=== PATIENT | male | born 1945 | race Caucasian/White ===

== ENCOUNTER 2022-03-16 10:30 | Emergency (ER) | payer MEDICARE, MEDICAID ==
[2022-03-16 11:15] LABS: BASO % 0.5 % (0.0-1.0); EOS # 0.1 10*3/uL (0.0-0.4); EOS % 1.1 % (1.0-4.0); HEMATOCRIT 39.5 % (42.0-52.0); LYMPH # 2.1 10*3/uL (1.3-4.4); LYMPH % 26.1 % (27.0-41.0); MEAN CORPUSCULAR HGB CONC 32.7 g/dl (33.0-37.0); MEAN PLATELET VOLUME 8.5 fl (9.6-12.3); MONO # 0.8 10*3/uL (0.1-1.0); MONO % 9.4 % (3.0-9.0); NEUT % 62.5 % (47.0-73.0); PLATELET COUNT AUTOMATED 344 10*3/uL (130-400); RED BLOOD COUNT 4.16 10*6/uL (4.50-5.90); RED CELL DISTRI WIDTH 13.3 % (0-14.5); WHITE BLOOD COUNT 7.9 10*3/uL (4.8-10.8)
[2022-03-16 11:26] LABS: ACT PARTIAL THROMBO TIME 29.3 SECONDS (20.0-32.1)
[2022-03-16 11:31] LABS: ALKALINE PHOSPHATASE 62 U/L (45-117); BUN 14 mg/dl (7-24); CHLORIDE 110 mmol/L (98-107); CREATININE 0.78 mg/dL (0.70-1.30); LIPASE 43 U/L (73-393); POTASSIUM 4.3 mmol/L (3.5-5.1); SGOT/AST 9 IU/L (3-35); SGPT/ALT 21 U/L (12-78); SODIUM 144 mmol/L (136-145); TOTAL PROTEIN 6.3 gm/dL (6.4-8.2)
[2022-03-16 11:44] LABS: VALPROIC ACID (DEPAKENE) 44.6 ug/ml (50-100)
[2022-03-16] MEDS ORDERED: ASPIRIN ADULT L81 M1 PO (16:40)
[2022-03-16] MEDS ORDERED: GENTLE LAXATIVE10 MG R (16:42)
[2022-03-16] MEDS ORDERED: FLORASTOR250 MG PO (16:44)
[2022-03-16] MEDS ORDERED: INSULIN LI100 UNIT/1 SQ (16:50)
[2022-03-16] MEDS ORDERED: JARDIANCE25 MG PO (16:51)
[2022-03-16] MEDS ORDERED: LANTUS SOL100 UNIT/1 SQ (16:52)
[2022-03-16] MEDS ORDERED: LISINOPRIL20 MG PO (16:53)
[2022-03-16] MEDS ORDERED: LOMOTIL 2.5-0.1 EACH PO (16:54)
[2022-03-16] MEDS ORDERED: LOVASTATIN20 MG PO (16:56)
[2022-03-16] MEDS ORDERED: TAMSULOSIN HCL0.4 MG PO (17:46)
[2022-03-16] MEDS ORDERED: TRULICITY1.5 MG/0.5 SC (17:52)
[2022-03-16] MEDS ORDERED: [UNRECOGNIZED DRUG - OTHER] PO (17:53)
== END 2022-03-16 15:58 ==
LOC: ED 10:30
PROVIDERS: Emergency Medicine
DX: F23 Brief psychotic disorder (principal); Z88.2 Allergy status to sulfonamides; Z88.8 Allergy status to other drugs, medicaments and biological substances

== ENCOUNTER 2022-03-16 13:15 | Inpatient (IN) | payer MEDICARE, MEDICAID ==
[~2022-03-16] VITALS: Ht 177.8 cm; Wt 73.5 kg
[2022-03-16] MEDS ORDERED: ASPIRIN ADULT L81 M1 PO (16:40)
[2022-03-16] MEDS ORDERED: GENTLE LAXATIVE10 MG R (16:42)
[2022-03-16] MEDS ORDERED: FLORASTOR250 MG PO (16:44)
[2022-03-16] MEDS ORDERED: INSULIN LI100 UNIT/1 SQ (16:50)
[2022-03-16] MEDS ORDERED: JARDIANCE25 MG PO (16:51)
[2022-03-16] MEDS ORDERED: LANTUS SOL100 UNIT/1 SQ (16:52)
[2022-03-16] MEDS ORDERED: LISINOPRIL20 MG PO (16:53)
[2022-03-16] MEDS ORDERED: LOMOTIL 2.5-0.1 EACH PO (16:54)
[2022-03-16] MEDS ORDERED: LOVASTATIN20 MG PO (16:56)
[2022-03-16] MEDS ORDERED: TAMSULOSIN HCL0.4 MG PO (17:46)
[2022-03-16] MEDS ORDERED: TRULICITY1.5 MG/0.5 SC (17:52)
[2022-03-16] MEDS ORDERED: [UNRECOGNIZED DRUG - OTHER] PO (17:53)
[2022-03-16 20:00] VITALS: BP 120/74
[2022-03-16 20:49] VITALS: BP 120/74
[2022-03-17 06:10] LABS: BASO # 0.1 10*3/uL (0.0-0.1); BASO % 0.5 % (0.0-1.0); EOS # 0.2 10*3/uL (0.0-0.4); EOS % 2.1 % (1.0-4.0); HEMATOCRIT 39.4 % (42.0-52.0); LYMPH % 31.9 % (27.0-41.0); MEAN CELL VOLUME 95.2 fl (80.0-94.0); MEAN CORPUSCULAR HGB 31.4 pg (27.0-31.0); MEAN PLATELET VOLUME 8.7 fl (9.6-12.3); NEUT # 5.1 10*3/uL (2.3-7.9); NEUT % 54.3 % (47.0-73.0); PLATELET COUNT AUTOMATED 338 10*3/uL (130-400); RED BLOOD COUNT 4.14 10*6/uL (4.50-5.90); RED CELL DISTRI WIDTH 13.6 % (0-14.5); WHITE BLOOD COUNT 9.4 10*3/uL (4.8-10.8)
[2022-03-17 06:18] LABS: BUN 13 mg/dl (7-24); CHLORIDE 107 mmol/L (98-107); CHOLESTEROL 108 mg/dL (<200); CREATININE 0.74 mg/dL (0.70-1.30); POTASSIUM 3.6 mmol/L (3.5-5.1); SGOT/AST 20 IU/L (3-35); SGPT/ALT 20 U/L (12-78); SODIUM 141 mmol/L (136-145)
[2022-03-17 06:28] LABS: ALKALINE PHOSPHATASE 60 U/L (45-117); LDL CHOLESTEROL 44 mg/dL (9-159); TOTAL PROTEIN 6.4 gm/dL (6.4-8.2); TRIGLYCERIDES 80 mg/dl (<150); VALPROIC ACID (DEPAKENE) 37.8 ug/ml (50-100)
[2022-03-17 07:43] LABS: VITAMIN D, 25-HYDROXY 41.6 ng/mL (30-100)
[2022-03-17 07:44] VITALS: BP 113/63
[2022-03-17 20:00] VITALS: BP 132/78
[2022-03-18 07:44] VITALS: BP 129/80
[2022-03-18 20:00] VITALS: BP 104/87
[2022-03-19 07:02] VITALS: BP 125/90
[2022-03-19 20:00] VITALS: BP 141/89
[2022-03-20 07:19] VITALS: BP 116/58
[2022-03-20 20:00] VITALS: BP 124/59
[2022-03-21 08:39] VITALS: BP 108/56
[2022-03-21 10:30] VITALS: BP 102/50
[2022-03-21 20:00] VITALS: BP 142/73
[2022-03-22 08:00] VITALS: BP 110/62
[2022-03-22 10:57] LABS: BASO % 0.4 % (0.0-1.0); EOS # 0.1 10*3/uL (0.0-0.4); EOS % 1.4 % (1.0-4.0); HEMATOCRIT 39.5 % (42.0-52.0); LYMPH # 2.8 10*3/uL (1.3-4.4); LYMPH % 30.6 % (27.0-41.0); MEAN CORPUSCULAR HGB CONC 32.7 g/dl (33.0-37.0); MEAN PLATELET VOLUME 8.8 fl (9.6-12.3); MONO # 0.9 10*3/uL (0.1-1.0); MONO % 9.9 % (3.0-9.0); NEUT # 5.2 10*3/uL (2.3-7.9); NEUT % 57.4 % (47.0-73.0); PLATELET COUNT AUTOMATED 332 10*3/uL (130-400); RED BLOOD COUNT 4.16 10*6/uL (4.50-5.90); RED CELL DISTRI WIDTH 13.8 % (0-14.5); WHITE BLOOD COUNT 9.1 10*3/uL (4.8-10.8)
[2022-03-22 11:15] LABS: ALKALINE PHOSPHATASE 62 U/L (45-117); BUN 18 mg/dl (7-24); CHLORIDE 107 mmol/L (98-107); CREATININE 0.68 mg/dL (0.70-1.30); POTASSIUM 5.2 mmol/L (3.5-5.1); SGOT/AST 18 IU/L (3-35); SGPT/ALT 30 U/L (12-78); SODIUM 141 mmol/L (136-145); TOTAL PROTEIN 5.8 gm/dL (6.4-8.2)
[2022-03-22 20:00] VITALS: BP 104/62
[2022-03-23 06:54] LABS: BUN 16 mg/dl (7-24); CHLORIDE 109 mmol/L (98-107); POTASSIUM 4.3 mmol/L (3.5-5.1); SODIUM 141 mmol/L (136-145); TOTAL PROTEIN 5.8 gm/dL (6.4-8.2)
[2022-03-23 06:57] LABS: ALKALINE PHOSPHATASE 65 U/L (45-117); CREATININE 0.72 mg/dL (0.70-1.30); SGOT/AST 17 IU/L (3-35); SGPT/ALT 32 U/L (12-78)
[2022-03-23 07:16] VITALS: BP 115/80
[2022-03-23 20:00] VITALS: BP 103/76
[2022-03-24 07:00] VITALS: BP 112/64
[2022-03-24 18:57] VITALS: BP 150/91
[2022-03-25 06:43] VITALS: BP 148/88
[2022-03-25 20:00] VITALS: BP 152/87
[2022-03-26 07:41] VITALS: BP 102/58
[2022-03-26 20:00] VITALS: BP 109/61
[2022-03-27 07:05] VITALS: BP 126/61
[2022-03-27 20:00] VITALS: BP 121/62
[2022-03-28 08:00] VITALS: BP 112/69
[2022-03-28 20:00] VITALS: BP 122/65
[2022-03-29 07:54] VITALS: BP 101/60
[2022-03-29 20:00] VITALS: BP 125/67
[2022-03-30 08:17] VITALS: BP 127/69
[2022-03-30 20:00] VITALS: BP 124/68
[2022-03-31 06:59] VITALS: BP 126/70
[2022-03-31 10:15] LABS: BASO # 0.1 10*3/uL (0.0-0.1); BASO % 0.6 % (0.0-1.0); EOS # 0.2 10*3/uL (0.0-0.4); EOS % 2.2 % (1.0-4.0); HEMATOCRIT 38.1 % (42.0-52.0); LYMPH # 2.9 10*3/uL (1.3-4.4); MEAN CELL VOLUME 95.3 fl (80.0-94.0); MEAN CORPUSCULAR HGB CONC 32.5 g/dl (33.0-37.0); MEAN PLATELET VOLUME 8.5 fl (9.6-12.3); MONO # 1.1 10*3/uL (0.1-1.0); MONO % 10.2 % (3.0-9.0); NEUT # 6.5 10*3/uL (2.3-7.9); NEUT % 59.6 % (47.0-73.0); PLATELET COUNT AUTOMATED 291 10*3/uL (130-400); RED CELL DISTRI WIDTH 14.4 % (0-14.5); WHITE BLOOD COUNT 10.8 10*3/uL (4.8-10.8)
[2022-03-31 10:41] LABS: ALKALINE PHOSPHATASE 74 U/L (45-117); BUN 17 mg/dl (7-24); CHLORIDE 107 mmol/L (98-107); CREATININE 0.86 mg/dL (0.70-1.30); POTASSIUM 4.2 mmol/L (3.5-5.1); SGOT/AST 22 IU/L (3-35); SGPT/ALT 49 U/L (12-78); SODIUM 140 mmol/L (136-145); TOTAL PROTEIN 6.4 gm/dL (6.4-8.2)
[2022-03-31 20:00] VITALS: BP 135/67
[2022-04-01 06:58] VITALS: BP 129/60
[2022-04-01 19:25] VITALS: BP 147/72
[2022-04-02 07:53] VITALS: BP 129/66
[2022-04-02 07:54] VITALS: BP 139/77
[2022-04-02 20:00] VITALS: BP 106/77
[2022-04-03 07:29] VITALS: BP 110/50
[2022-04-03 20:00] VITALS: BP 118/57
[2022-04-04 07:31] VITALS: BP 132/70
[2022-04-04 07:32] VITALS: BP 104/62
[2022-04-05 07:34] VITALS: BP 118/68
[2022-04-05] MEDS ORDERED: LANTUS SOL100 UNIT/1 SQ (10:36)
[2022-04-05] MEDS ORDERED: Humalog SQ (10:36)
[2022-04-05 20:00] VITALS: BP 139/62
[2022-04-06 07:11] VITALS: BP 125/60
[2022-04-06] MEDS ORDERED: QUETIAPINE FUMA25 MG PO (09:23)
[2022-04-06] MEDS ORDERED: MIRTAZAPINE15 M2 PO (09:23)
[2022-04-06] MEDS ORDERED: RIVASTIGMINE1 EAC2 T (09:23)
[2022-04-06] MEDS ORDERED: ROZEREM8 MG PO (09:24)
[2022-04-06] MEDS ORDERED: MEMANTINE HCL10 MG PO (09:24)
[2022-04-06] MEDS ORDERED: LORAZEPAM1 MG PO (09:24)
== END 2022-04-06 11:27 | DRG 883 ==
LOC: 3N 13:15
PROVIDERS: Counselor Professional; Student in an Organized Health Care Education/Training Program; ADMIT Psychiatry & Neurology Psychiatry; ATTEND Psychiatry & Neurology Psychiatry
DX: F63.81 Intermittent explosive disorder (principal); E43 Unspecified severe protein-calorie malnutrition; F23 Brief psychotic disorder; E87.2 Acidosis; I48.20 Chronic atrial fibrillation, unspecified; F02.81 Dementia in other diseases classified elsewhere, unspecified severity, with behavioral disturbance; Z68.23 Body mass index [BMI] 23.0-23.9, adult; Z20.822 Contact with and (suspected) exposure to COVID-19; I10 Essential (primary) hypertension; F32.A Depression, unspecified; E78.5 Hyperlipidemia, unspecified; Z66 Do not resuscitate; N40.0 Benign prostatic hyperplasia without lower urinary tract symptoms; E83.51 Hypocalcemia; R73.9 Hyperglycemia, unspecified; F41.9 Anxiety disorder, unspecified; G30.9 Alzheimer's disease, unspecified; D53.9 Nutritional anemia, unspecified; E87.8 Other disorders of electrolyte and fluid balance, not elsewhere classified; Z51.5 Encounter for palliative care; Z88.2 Allergy status to sulfonamides; Z88.8 Allergy status to other drugs, medicaments and biological substances; Z79.82 Long term (current) use of aspirin; Z79.899 Other long term (current) drug therapy